=== PATIENT | female | born 2000 | race Caucasian/White ===

== ENCOUNTER 2021-09-17 09:55 | Emergency (ER) | payer OTHER ==
[2021-09-17 10:12] VITALS: BP 116/79; PULSE 83; TEMP 98.1; BMI 24.4
[2021-09-17] MEDS ORDERED: AMOX TR/POT CLAV 875MG/125MG TABLETS (FP) PO ONE (11:38)
[2021-09-17] MEDS ORDERED: AMOX TR/POT CLAV 875MG/125MG TABLETS (FP) ONE (11:48)
== END 2021-09-17 12:10 | disposition home or self-care (01) ==
LOC: JER 09:55 → JERFT 09:55
DX: S01.81XA Laceration without foreign body of other part of head, initial encounter (principal); S61.412A Laceration without foreign body of left hand, initial encounter; W54.0XXA Bitten by dog, initial encounter; Y92.9 Unspecified place or not applicable
CPT/HCPCS: 99283-25

== ENCOUNTER 2021-09-19 09:37 | Emergency (ER) | payer OTHER ==
[2021-09-19 09:58] VITALS: BP 101/55; PULSE 71; TEMP 97.9; BMI 24.4
== END 2021-09-19 11:31 | disposition home or self-care (01) ==
LOC: JERFT 09:37
DX: Z48.02 Encounter for removal of sutures (principal)
CPT/HCPCS: 99281-25

== ENCOUNTER 2021-09-22 09:16 | Emergency (ER) | payer OTHER ==
[2021-09-22 09:46] VITALS: BP 103/64; PULSE 78; TEMP 97; BMI 24.4
== END 2021-09-22 10:45 | disposition home or self-care (01) ==
LOC: JER 09:16
DX: Z48.02 Encounter for removal of sutures (principal)
CPT/HCPCS: 99281-25

== ENCOUNTER 2022-06-30 10:06 | Emergency (ER) | payer OTHER ==
[2022-06-30 10:12] VITALS: BP 106/68; PULSE 57; RESP 17; TEMP 98.6; BMI 20.9
[2022-06-30] MEDS ORDERED: DIPHTH,PERTUSS(ACELL),TET 0.5 ML DISP.SYRIN IM ONE ×2 (10:52→11:01)
== END 2022-06-30 11:44 | disposition home or self-care (01) ==
LOC: JERFT 10:06 → JER 10:06 → JERFT 11:44
PROC: 0HQEXZZ Repair Left Lower Arm Skin, External Approach (ICD-10-PCS; principal; 2022-06-30)
PROC: 3E0234Z Introduction of Serum, Toxoid and Vaccine into Muscle, Percutaneous Approach (ICD-10-PCS; 2022-06-30)
DX: S41.152A Open bite of left upper arm, initial encounter (principal); R21 Rash and other nonspecific skin eruption
CPT/HCPCS: 12001-25; 90471; 90715; 99283-25

== ENCOUNTER 2022-07-07 15:47 | Emergency (ER) | payer OTHER ==
[2022-07-07 16:04] VITALS: BP 101/55; PULSE 89; RESP 18; TEMP 98.1; BMI 24.2
== END 2022-07-07 17:04 | disposition home or self-care (01) ==
LOC: JER 15:47 → JERFT 15:47
DX: Z48.02 Encounter for removal of sutures (principal)
CPT/HCPCS: 99281-25